=== PATIENT | female | born 1980 | race African-American/Black ===

== ENCOUNTER 2021-05-15 17:14 | Emergency (ER) | payer BC ==
[~2021-05-15 17:14] MED LIST: Iopamidol-370 76% 500 ML 1 ML ONE
[2021-05-15] MEDS ORDERED: Morphine 4 MG/ML VIAL ONE (17:54)
[2021-05-15] MEDS ORDERED: Ondansetron PF 4 MG/2 ML Vial ONE (17:54)
[2021-05-15 18:15] LABS: Hemoglobin 14.1 g/dL (12.0-16.0); Mean Corpuscular HGB CONC 33.9 g/dL (32.0-36.0); Mean Corpuscular Hemoglobin 29.1 pg (27.0-31.0); Mean Corpuscular Volume 85.9 fL (78.0-98.0); Mean Platelet Volume 8.9 fL (7.4-10.4); Platelet Count 319 thou/uL (130-400); RBC Distribution Width 12.5 % (11.5-14.5); Red Blood Cell (RBC) Count 4.82 mill/uL (4.20-5.40); White Blood Cell (WBC) Count 11.6 thou/uL (4.8-10.8)
[2021-05-15 18:39] LABS: ALT (SGPT) 60 U/L (8-55); AST (SGOT) 99 U/L (5-34); Albumin 4.7 g/dL (3.5-5.0); Alkaline Phosphatase 70 U/L (40-110); Anion Gap 17 mmol/L (10-20); BUN (Urea Nitrogen) 11 mg/dL (7.0-18.7); Bilirubin, Total 0.3 mg/dL (0.2-1.2); Calc. Creatinine Clearance 0 mL/min (70-130); Carbon Dioxide 19 mmol/L (22-29); Chloride 105 mmol/L (98-107); Globulin 3.9 g/dL (2.4-3.5); Glucose 106 mg/dL (70-105); Lipase 48 U/L (8-78); Potassium 4.4 mmol/L (3.5-5.1); Protein, Total 8.6 g/dL (6.0-8.3); Sodium 137 mmol/L (136-145)
[2021-05-15 18:43] LABS: Band 1 % (5-11); Lymphocytes 58 % (21-51); MDiff Complete? YES; Monocytes 5 % (0-10); Neutrophil 34 % (42-75); Platelet Morphology Comment Appears Adequate; RBC Morphology Normal; Reactive Lymphocytes 2 % (0-10)
[2021-05-15 19:09] LABS: Pregnancy Test - Urine (BHCG) Negative (Negative); Pregu Control Background? CLEAR/WHITE (CLR/WHITE); Pregu Control Bar Appear? YES (CONTROL BAR); Specific Gravity 1.017 (1.002-1.036)
== END 2021-05-15 21:44 | disposition home or self-care (01) ==
LOC: ERS 17:14
DX: R07.9 Chest pain, unspecified (principal); Z79.84 Long term (current) use of oral hypoglycemic drugs
CPT/HCPCS: 36415; 71045; 71275; 76705; 80053; 81025; 83690; 84484; 85025; 85379; 93005; 96374; 96375; J2270; J2405

== ENCOUNTER 2022-08-17 10:32 | Observation (INO) | payer OTHER ==
[2022-08-17] MEDS ORDERED: Bupivacaine/Epinephrine 0.25% 30 ML VIAL ONE (12:24)
[2022-08-17] MEDS ORDERED: fentaNYL PF 100 MCG/2 ML SYRINGE ONE (12:57)
[2022-08-17] MEDS ORDERED: CEFAZOLIN 2 GM VIAL ONE (13:00)
[2022-08-17] MEDS ORDERED: Sodium Chloride 0.9% 100 ML ONE (13:00)
[2022-08-17] MEDS ORDERED: Midazolam HCl 2 mg/2 ml Vial ONE (13:07)
[2022-08-17] MEDS ORDERED: NEOSTIGMINE 3 MG/3 ML SYR 3 MG/3 ML SYRINGE ONE (13:09)
[2022-08-17] MEDS ORDERED: PROPOFOL 200 MG/20 ML VIAL ONE (13:09)
[2022-08-17] MEDS ORDERED: Rocuronium Bromide 10 MG/ML (10ML VIAL) ONE (13:09)
[2022-08-17] MEDS ORDERED: PHENYLEPHRINE-NS 100 MCG/ML 10 ML SYRINGE ONE (13:09)
[2022-08-17] MEDS ORDERED: Ondansetron PF 4 MG/2 ML Vial ONE (13:09)
[2022-08-17] MEDS ORDERED: Lidocaine 1% PF 5 ML VIAL ONE (13:09)
[2022-08-17] MEDS ORDERED: Glycopyrrolate 0.2 MG/ML 5 ML SYRINGE ONE (13:09)
[2022-08-17] MEDS ORDERED: Ketorolac Tromethamine 30 MG/ML VIAL ONE (13:09)
[2022-08-17] MEDS ORDERED: Fentanyl 100 MCG/2 ML VIAL ONE ×3 (14:20→15:17)
[2022-08-17] MEDS ORDERED: HYDROmorphone 0.5 MG/0.5 ML SYRINGE ONE ×2 (15:26→15:37)
[2022-08-17] MEDS ORDERED: Diazepam 10 MG/2 ML SYRINGE IVP SCH (16:15)
[2022-08-17] MEDS ORDERED: Labetalol HCl 100 MG/20 ML VIAL ONE (16:49)
[2022-08-17] MEDS ORDERED: HYDROcodone/Acetaminophen 5/325 mg Tablet ONE (17:16)
[2022-08-17] MEDS ORDERED: Promethazine HCl 25 MG/ML VIAL ONE (18:03)
[2022-08-17] MEDS ORDERED: Ondansetron PF 4 MG/2 ML Vial IVP PRN ×2 (19:21→19:24)
[2022-08-17] MEDS ORDERED: diphenhydrAMINE 25 MG CAP PO PRN (19:21)
[2022-08-17] MEDS ORDERED: Naloxone HCl 0.4 mg/ml Vial IV PRN (19:21)
[2022-08-17] MEDS ORDERED: diphenhydrAMINE 50 MG/ML VIAL IVP PRN (19:21)
[2022-08-17] MEDS ORDERED: diphenhydrAMINE 50 MG/ML VIAL IM PRN (19:21)
[2022-08-17] MEDS ORDERED: Promethazine HCl 25 MG/ML VIAL IM PRN ×2 (19:21→19:24)
[2022-08-17] MEDS ORDERED: FENTANYL 500 MCG/10 ML VIAL 2,000 MCG in Sodium Chloride 0.9% 60 ML IV PRN (19:21)
[2022-08-17] MEDS ORDERED: Zolpidem Tartrate 5 MG TAB PO PRN (19:21)
[2022-08-17] MEDS ORDERED: Mag-Al 1200 mg/1200 mg/30 ML UDCUP PO PRN (19:24)
[2022-08-17] MEDS ORDERED: Ipratropium/Albuterol 3 ML NEB NEB PRN (19:24)
[2022-08-17] MEDS ORDERED: Dextrose 5% in Water 1,000 ML IV PRN (19:24)
[2022-08-17] MEDS ORDERED: Calcium Carbonate 500 MG ChewTAB PO PRN (19:24)
[2022-08-17] MEDS ORDERED: Dextrose 50% Abboject 50 ML SYRINGE SLOW IVP PRN (19:24)
[2022-08-17] MEDS ORDERED: hydrALAZINE 20 MG/ML VIAL SLOW IVP PRN (19:24)
[2022-08-17] MEDS ORDERED: Communication Order-Pharmacy FS SCH (19:30)
[2022-08-17] MEDS ORDERED: Docusate 100 MG CAP PO SCH (21:00)
[2022-08-17] MEDS ORDERED: Famotidine 20 MG TAB PO SCH (21:00)
[2022-08-17] MEDS: Sodium Chloride 0.9% 1,000 ML IV SCH (22:15)
[2022-08-17] MEDS: Famotidine/PF 20 mg/2ml Vial SLOW IVP SCH (22:17)
[2022-08-18 08:59] VITALS: BP 132/85; TEMP 97.8
[2022-08-18] MEDS ORDERED: FLU VACC QS2022-23(6MOS UP)/PF 60 MCG/0.5 ML SYRINGE IM ONE (09:00)
[2022-08-18] MEDS ORDERED: Bupropion 150 MG XL TAB PO SCH (09:00)
[2022-08-18] MEDS: Famotidine/PF 20 mg/2ml Vial SLOW IVP SCH (10:07)
[2022-08-18] MEDS: Sodium Chloride 0.9% 1,000 ML IV SCH (10:58)
[2022-08-18 11:09] VITALS: BMI 37.2
== END 2022-08-18 13:00 | disposition home or self-care (01) ==
LOC: SDC 10:32 → MSONC 19:24
PROVIDERS: ADMIT Surgery; ATTEND Surgery
PROC: 0FT44ZZ Resection of Gallbladder, Percutaneous Endoscopic Approach (ICD-10-PCS; principal; 2022-08-17)
DX: K80.10 Calculus of gallbladder with chronic cholecystitis without obstruction (principal); R73.03 Prediabetes; E55.9 Vitamin D deficiency, unspecified; M19.90 Unspecified osteoarthritis, unspecified site; J45.909 Unspecified asthma, uncomplicated; Z79.899 Other long term (current) drug therapy; Z91.040 Latex allergy status
CPT/HCPCS: 88304; C1889; G0378; J1170; J1885; J2250; J2405; J2550; J2704; J3010; J3360; J3490; J7050

== ENCOUNTER 2023-01-27 08:16 | Outpatient (CLI) | payer OTHER | END 2023-01-27 08:17 | disposition home or self-care (01) | LOC: BICMAMMO 08:16 | PROVIDERS: ATTEND Family Medicine | DX: Z12.31 Encounter for screening mammogram for malignant neoplasm of breast (principal); Z80.3 Family history of malignant neoplasm of breast | CPT/HCPCS: 77063; 77067 ==

== ENCOUNTER 2023-03-30 16:12 | Emergency (ER) | payer OTHER, SELFPAY ==
[~2023-03-30 16:12] MED LIST changes: -Iopamidol-370 76% 500 ML 1 ML ONE; +Iopamidol-370 76% 500 ML MDV (1 ML CHARGE) ONE
[2023-03-30 18:09] LABS: #Eosinphils 0.1 thou/uL (0.0-0.7); #Monocytes 0.8 thou/uL (0.11-0.59); #Neutrophils 3.9 thou/uL (1.40-6.50); %Basophils 0.3 % (0.0-1.0); %Eosinophils 1.6 % (0.0-10.0); %Lymphocytes 44.8 % (21.0-51.0); %Monocytes 8.6 % (0.0-10.0); %Neutrophils 44.5 % (42.0-75.0); Hematocrit 38.3 % (36.0-47.0); Hemoglobin 12.5 g/dL (12.0-16.0); Mean Corpuscular HGB CONC 32.6 g/dL (32.0-36.0); Mean Corpuscular Hemoglobin 26.9 pg (27.0-31.0); Mean Corpuscular Volume 82.5 fl (78.0-98.0); Mean Platelet Volume 10.8 fL (7.4-10.4); Platelet Count 315 10x3/uL (130-400); RBC Distribution Width 14.6 % (11.5-14.5); Red Blood Cell (RBC) Count 4.64 mill/uL (4.20-5.40); White Blood Cell (WBC) Count 8.8 10x3/uL (4.8-10.8)
[2023-03-30 18:37] LABS: ALT (SGPT) 26 U/L (8-55); AST (SGOT) 20 U/L (5-34); Albumin 4.4 g/dL (3.5-5.0); Alkaline Phosphatase 57 U/L (40-110); Anion Gap 10 mmol/L (10-20); BUN (Urea Nitrogen) 11 mg/dL (7.0-18.7); Bilirubin, Total 0.2 mg/dL (0.2-1.2); Calc. Creatinine Clearance 0 mL/min (70-130); Calcium 9.3 mg/dL (7.8-10.44); Carbon Dioxide 23 mmol/L (22-29); Chloride 106 mmol/L (98-107); Estimated GFR 95; Globulin 3.6 g/dL (2.4-3.5); Glucose 87 mg/dL (70-105); Lipase 25 U/L (8-78); Potassium 4.1 mmol/L (3.5-5.1); Sodium 135 mmol/L (136-145)
[2023-03-30 20:15] LABS: Bacteria/HPF None Seen HPF (None Seen); Bilirubin Negative (Negative); Blood, Urine 3+ (Negative); CAUTI Indications for Culture Dysuria,urgency,freq; Clarity Extra Turbid (Clear); Glucose, Urine (Dipstick) Normal (Negative); Ketone, Urine Negative (Negative); Leukocyte 250 Leu/uL (Negative); Nitrite Negative (Negative); Protein, Urine (Dipstick) 200 mg/dL (Neg-Trace); RBC/HPF Greater than 50 HPF (0-3); Specific Gravity, Urine 1.019 (1.002-1.036); Urobilinogen Normal mg/dL (Less than 2); pH, Urine 6.5 (5.0-9.0)
[2023-03-30 20:23] LABS: Pregnancy Test - Urine (BHCG) Negative (Negative); Pregu Control Background? CLEAR/WHITE (CLR/WHITE); Pregu Control Bar Appear? YES (CONTROL BAR); Specific Gravity 1.019 (1.002-1.036)
[2023-03-30 20:25] LABS: Urine Culture Reflex Yes Yes
[2023-03-30] MEDS ORDERED: cefTRIAXone (ROCEPHIN) 1 GM VIAL ONE (22:27)
[2023-03-30] MEDS ORDERED: Ondansetron PF 4 MG/2 ML Vial ONE (22:27)
[2023-03-30] MEDS ORDERED: Morphine 4 MG/ML VIAL ONE (22:27)
[2023-03-31] MEDS ORDERED: Morphine 4 MG/ML VIAL ONE (00:30)
== END 2023-03-31 00:49 | disposition home or self-care (01) ==
LOC: ERS 16:12
DX: K57.32 Diverticulitis of large intestine without perforation or abscess without bleeding (principal)
CPT/HCPCS: 36415; 74177; 80053; 81001; 81025; 83690; 85025; 87086; 96361; 96365; 96375; 96376; J0696; J2270; J2405; Q9967

== ENCOUNTER 2024-05-03 14:18 | Outpatient (CLI) | payer BC | END 2024-05-03 14:19 | disposition home or self-care (01) | LOC: BICMAMMO 14:18 | PROVIDERS: ATTEND Family Medicine | DX: Z12.31 Encounter for screening mammogram for malignant neoplasm of breast (principal); Z80.3 Family history of malignant neoplasm of breast | CPT/HCPCS: 77063; 77067 ==